=== PATIENT | female | born 1985 ===

== ENCOUNTER 2018-03-25 18:28 | Emergency (ER) | payer BC ==
[2018-03-25] MEDS ORDERED: ONDANSETRON 4 MG/2 ML VIAL ONE (19:29)
[2018-03-25 19:33] LABS: Absolute Lymphocytes (CBC) 0.4 K/uL (0.7-4.9); Absolute Monocytes 0.3 K/uL (0.1-1.3); Absolute Neutrophil 4.1 K/uL (1.8-8.0); Basophils % 0.1 % (0-1.3); Eosinophils % 0.1 % (0-4.4); Hematocrit 43.4 % (36.0-45.0); Lymphocytes % 9.2 % (15.3-44.8); Monocytes % 5.5 % (3.3-12.3); RBC Red Blood Cell Count 5.16 M/uL (3.86-4.86)
[2018-03-25 19:43] LABS: Albumin 3.4 g/dL (3.4-5.0); Bilirubin Direct 0.2 mg/dL (0-0.2); Bilirubin Total 0.6 mg/dL (0.2-1.0); Protein, Total 7.5 g/dL (6.4-8.2)
[2018-03-25] MEDS ORDERED: NA CHLORIDE 0.9% 1,000 ML ONE (20:50)
[2018-03-25] MEDS ORDERED: DICYCLOMINE HCL 10 MG CAP ONE (20:56)
[2018-03-25] MEDS ORDERED: METOCLOPRAMIDE 10 MG/2mL INJ ONE (20:56)
[2018-03-25 21:30] LABS: Urine Blood NEGATIVE (NEG); Urine Glucose NEGATIVE (NEG); Urine Protein NEGATIVE (NEG); Urine Specific Gravity >1.030 (1.005-1.030); Urine pH 5.5 (5.0-7.0)
--- NOTE | 2018-03-25 22:25 | EDPHYS ---
Physician Documentation [facility] Name: Marilyn [place] Age: 32 yrs Sex: Female : 1985 Arrival Date: 03/25/2018 Time: 18:33 Bed 28 Private MD: None, None ED Physician Boni Montgomery HPI: 03/25 19:28 This 32 yrs old Female presents to ER via Ambulatory with complaints of jmm Nausea/Vomiting/Diarrhea. 19:28 The patient presents to the emergency department with nausea, vomiting, diarrhea. jmm Onset: The symptoms/episode began/occurred this morning. Possible causes: sick contacts, by family, mother. The symptoms are aggravated by nothing. The symptoms are alleviated by nothing. Associated signs and symptoms: Pertinent positives: diarrhea, vomiting. This is a 32 year old female with no chronic medical conditions that presents to the ED with vomiting, diarrhea beginning this morning at approx 0530. Mother has developed similar symptoms. Also complains of congestion. . 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 - Social history:: Smoking status: Patient/guardian denies using tobacco. - Ebola Screening: : No symptoms or risks identified at this time. ROS: 19:30 Eyes: Negative for injury, pain, redness, and discharge. jmm 19:30 Cardiovascular: Negative for chest pain, palpitations, and edema, Respiratory: Negative for shortness of breath, cough, wheezing, and pleuritic chest pain. 19:30 Constitutional: Positive for body aches, chills. 19:30 ENT: Positive for sinus congestion. 19:30 Abdomen/GI: Positive for abdominal pain, nausea and vomiting, diarrhea. 19:30 All other systems are negative. Exam: 19:30 Head/Face: atraumatic. Eyes: EOMI, no conjunctival erythema appreciated ENT: Moist jmm Mucus Membranes Neck: Trachea midline, Supple Chest/axilla: Normal chest wall appearance and motion. Cardiovascular: Regular rate and rhythm. No edema appreciated Respiratory: Normal respirations, no respiratory distress appreciated 19:30 Constitutional: The patient appears in no acute distress, alert, awake. 19:30 Abdomen/GI: Inspection: abdomen appears normal, Bowel sounds: normal, Palpation: abdomen is soft and non-tender, in all quadrants. 19:30 Back: ROM is normal. 19:30 Musculoskeletal/extremity: ROM: intact in all extremities. 19:30 Skin: Appearance: Color: normal in color. 19:30 Neuro: Orientation: is normal, Mentation: is normal, Memory: is normal. 19:30 Psych: Behavior/mood is pleasant, cooperative. Vital Signs: 18:50 BP 145 / 75; Pulse 93; Resp 16; Temp 98.9; Pulse Ox 100% on R/A; Pain 8/10; hb 19:30 BP 115 / 53; Pulse 80 MON; Resp 17 S; Pulse Ox 100% on R/A; rv 20:00 BP 118 / 72; Pulse 78; Resp 16; Pulse Ox 96% on R/A; rv 21:00 BP 135 / 67; Pulse 81; Resp 17 S; Pulse Ox 100% on R/A; rv MDM: 19:28 Patient medically screened. [facility] 20:35 Data reviewed: vital signs, nurses notes. Counseling: I had a detailed discussion with [facility] the patient and/or guardian regarding: the historical points, exam findings, and any diagnostic results supporting the discharge/admit diagnosis, lab results, the need for outpatient follow up, to return to the emergency department if symptoms worsen or persist or if there are any questions or concerns that arise at home. 21:16 Data reviewed: lab test result(s). Transition of care: After a detail discussion of the [facility] patient's case, care is transferred to Albert MCGUIRE. ED course: Patient states feeling better. Can tolerate PO in the ED. Abdomen is soft, no guarding or rebound. i do not currently suspect an acute intraabdominal process. Patient given early appendicitis return precautions. patient understood and agrees with plan of care. . 03/25 18:59 Order name: Basic Metabolic Panel; Complete Time: 19:45 [facility] 03/25 18:59 Order name: CBC with Diff; Complete Time: 19:45 [facility] 03/25 18:59 Order name: Creatinine for Radiology; Complete Time: 19:45 [facility] 03/25 18:59 Order name: Hepatic Function; Complete Time: 19:45 [facility] 03/25 18:59 Order name: Lipase; Complete Time: 19:45 [facility] 03/25 21:09 Order name: Flu; Complete Time: 22:25 [facility] 03/25 18:59 Order name: IV Saline Lock; Complete Time: 19:26 [facility] 03/25 21:16 Order name: Urine Dipstick--Ancillary (enter results); Complete Time: 21:44 [facility] 03/25 21:16 Order name: Urine --Ancillary (enter results); Complete Time: 21:44 [facility] 03/25 18:59 Order name: Labs collected and sent; Complete Time: 19:26 [facility] 03/25 20:02 Order name: Urine Dipstick-Ancillary (obtain specimen); Complete Time: 21:17 [facility] 03/25 20:02 Order name: Urine Test (obtain specimen); Complete Time: 21:17 [facility] 03/25 20:02 Order name: PO challenge; Complete Time: 20:52 [facility] Administered Medications: 19:20 Drug: NS 0.9% 1000 ml Route: IV; Rate: 1 bolus; Site: left antecubital; rv 20:51 Follow up: IV Status: Completed infusion; IV Intake: 1000ml rv 19:29 Drug: Zofran 4 mg Route: IVP; Site: left antecubital; rv 20:51 Follow up: Response: Nausea is decreased rv 20:46 Drug: NS 0.9% 1000 ml Route: IV; Rate: 1000 ml; Site: left antecubital; rv 20:50 Drug: Bentyl 20 mg Route: PO; rv 21:30 Follow up: Response: Pain is decreased rv 20:50 Drug: Reglan 10 mg Route: IVP; Site: left antecubital; rv 21:30 Follow up: Response: Nausea is decreased rv Disposition: 03/25/18 22:25 Discharged to Home. Impression: Vomiting, Diarrhea, unspecified. - Condition is Stable. - Discharge Instructions: Food Choices to Help Relieve Diarrhea, Adult, Nausea and Vomiting, Adult. - Prescriptions for Zofran ODT 4 mg Oral tablet,disintegrating - place 1 tablet by TRANSLINGUAL route every 4-6 hours; 20 tablet. Bentyl 20 mg Oral Tablet - take 1 tablet by ORAL route every 6 hours As needed; 20 tablet. - Medication Reconciliation Form, Thank You Letter, Antibiotic Education, Prescription Opioid Use form. - Follow up: Private Physician; When: 2 - 3 days; Reason: Recheck today's complaints, Continuance of care, Re-evaluation by your physician. Addendum: 04/05/2018 07:37 Co-signature as Attending Physician, Boni Montgomery MD I agree with the assessment and k dr plan of care. Signatures: Dispatcher [employer] EDSC Boni Montgomery MD MD kdr Mickail, Joel, PA PA jmm Roszak, Josh, PA PA jr8 Betsey De La Rosa, RN RN Akin Schmidt RN RN rv Corrections: (The following items were deleted from the chart) 03/25 22:31 22:25 03/25/2018 22:25 Discharged to Home. Impression: Vomiting; Diarrhea, unspecified. rv Condition is Stable. Discharge Instructions: Food Choices to Help Relieve Diarrhea, Adult, Nausea and Vomiting, Adult. Prescriptions for Zofran ODT 4 mg Oral tablet,disintegrating - place 1 tablet by TRANSLINGUAL route every 4-6 hours; 20 tablet, Bentyl 20 mg Oral Tablet - take 1 tablet by ORAL route every 6 hours As needed; 20 tablet. and Forms are Medication Reconciliation Form, Thank You Letter, Antibiotic Education, Prescription Opioid Use. Follow up: Private Physician; When: 2 - 3 days; Reason: Recheck today's complaints, Continuance of care, Re-evaluation by your physician. jr8
--- NOTE | 2018-03-25 22:25 | ER ---
Nurse's Notes [facility] Name: Marilyn Menon Age: 32 yrs Sex: Female : 1985 Arrival Date: 03/25/2018 Time: 18:33 Bed 28 Private MD: None, None Diagnosis: Vomiting;Diarrhea, unspecified Presentation: 03/25 18:49 Presenting complaint: Patient states: N/V/D since this morning. Not tolerating liquids. hb Transition of care: patient was not received from another setting of care. Onset of symptoms was March 25, 2018. Risk Assessment: Do you want to hurt yourself or someone else? Patient reports no desire to harm self or others. Care prior to arrival: None. 18:49 Method Of Arrival: Ambulatory hb 18:49 Acuity: FRANCO 3 hb 19:24 Initial Sepsis Screen: Does the patient meet any 2 criteria? No. Patient's initial rv sepsis screen is negative. Does the patient have a suspected source of infection? No. Patient's initial sepsis screen is negative. Triage Assessment: 19:24 GI: Reports nausea, vomiting. 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 - Social history:: Smoking status: Patient/guardian denies using tobacco. - Ebola Screening: : No symptoms or risks identified at this time. Screenin:51 Abuse screen: Denies threats or abuse. Denies injuries from another. Nutritional hb screening: No deficits noted. Tuberculosis screening: No symptoms or risk factors identified. 19:24 Fall Risk None identified. rv Assessment: 19:23 General: Appears in no apparent distress. comfortable, Behavior is calm, cooperative. rv Pain: Denies pain. Neuro: Level of Consciousness is awake, alert, obeys commands, Oriented to person, place, time, situation. Cardiovascular: Capillary refill < 3 seconds. Respiratory: Airway is patent. GI: Abdomen is round. : No signs and/or symptoms were reported regarding the genitourinary system. EENT: No signs and/or symptoms were reported regarding the EENT system. Derm: Skin is intact. Musculoskeletal: No signs and/or symptoms reported regarding the musculoskeletal system. 20:15 Reassessment: Patient appears in no apparent distress at this time. rv Vital Signs: 18:50 BP 145 / 75; Pulse 93; Resp 16; Temp 98.9; Pulse Ox 100% on R/A; Pain 8/10; hb 19:30 BP 115 / 53; Pulse 80 MON; Resp 17 S; Pulse Ox 100% on R/A; rv 20:00 BP 118 / 72; Pulse 78; Resp 16; Pulse Ox 96% on R/A; rv 21:00 BP 135 / 67; Pulse 81; Resp 17 S; Pulse Ox 100% on R/A; rv ED Course: 18:33 Patient arrived in ED. sb2 18:33 None, None is Private Physician. sb2 18:46 Cristian Munguia PA is PHCP. [facility] 18:46 Boni Montgomery MD is Attending Physician. [facility] 18:50 Triage completed. hb 18:50 Arm band placed on. hb 19:15 Initial lab(s) drawn, by ks, by EMS personnel. sent to lab. Inserted saline lock: 18 rv gauge in left antecubital area, using aseptic technique. Blood collected. 19:23 No provider procedures requiring assistance completed. rv 19:24 Patient has correct armband on for positive identification. Bed in low position. Call rv light in reach. Side rails up X 1. Pulse ox on. NIBP on. 21:21 PHCP role handed off by Cristian Munguia PA jr8 21:21 Albert Warren PA is PHCP. jr8 21:30 Flu Sent. rv 21:52 Flu Sent. rv 22:30 IV discontinued, bleeding controlled, No redness/swelling at site. Pressure dressing rv applied. Administered Medications: 19:20 Drug: NS 0.9% 1000 ml Route: IV; Rate: 1 bolus; Site: left antecubital; rv 20:51 Follow up: IV Status: Completed infusion; IV Intake: 1000ml rv 19:29 Drug: Zofran 4 mg Route: IVP; Site: left antecubital; rv 20:51 Follow up: Response: Nausea is decreased rv 20:46 Drug: NS 0.9% 1000 ml Route: IV; Rate: 1000 ml; Site: left antecubital; rv 20:50 Drug: Bentyl 20 mg Route: PO; rv 21:30 Follow up: Response: Pain is decreased rv 20:50 Drug: Reglan 10 mg Route: IVP; Site: left antecubital; rv 21:30 Follow up: Response: Nausea is decreased rv Intake: 20:51 IV: 1000ml; Total: 1000ml. rv Outcome: 22:25 Discharge ordered by MD. rivera 22:30 Discharged to home ambulatory. rv 22:30 Condition: good 22:30 Discharge instructions given to patient, family, Instructed on discharge instructions, follow up and referral plans. medication usage, Demonstrated understanding of instructions, follow-up care, medications, Prescriptions given X 2. 22:31 Patient left the ED. rv Signatures: Cristian Munguia PA PA jmm Roszak, Josh, PA PA jr8 Betsey De La Rosa RN RN Jacklyn Arevalo sb2 Akin Schmidt RN RN rv
== END 2018-03-25 22:31 | disposition home or self-care (01) ==
LOC: ER 18:28
DX: R19.7 Diarrhea, unspecified (principal)
CPT/HCPCS: 36415; 80048; 80076; 81003; 81025; 83690; 85025; 87804; 96361; 96374; 96375; 99284; J2405; J2765; J7030